=== PATIENT | male | born 1945 | race Caucasian/White ===

== ENCOUNTER 2018-08-05 14:06 | Inpatient (IN) | payer MEDICARE ==
--- NOTE | 2018-08-05 14:25 | EDM.PDOC ---
ED HPI GENERAL MEDICAL PROBLEM - General Chief Complaint: General Stated Complaint: VIA [facility] Time Seen by Provider: 08/05/18 14:14 Source of Information: Reports: Patient, RN Notes Reviewed History Limitations: Reports: No Limitations - History of Present Illness INITIAL COMMENTS - FREE TEXT/NARRATIVE: 73-year-old gentleman presents to the emergency department today with complaint of right sided back flank pain, he injured himself 2 days ago he slipped and fell on that side initially had no troubles then today he coughed really hard sudden onset of pain. He states it does hurt to take a deep breath no nausea vomiting no difficulties going to the bathroom Right Flank Pain Score (Numeric/FACES): 3 - Related Data Allergies Allergy/AdvReac Type Severity Reaction Status Date / Time No Known Allergies Allergy Verified 04/28/16 15:11 Home Meds: Home Meds Aspirin 1 tab PO DAILY 04/28/16 [History] Clopidogrel [Plavix] 75 mg PO DAILY 04/28/16 [History] Chlorthalidone 25 mg PO DAILY 08/05/18 [History] Famotidine [Pepcid] 20 mg PO DAILY 08/05/18 [History] Lisinopril 20 mg PO DAILY 08/05/18 [History] Rosuvastatin [Crestor] 20 mg PO DAILY 08/05/18 [History] amLODIPine [Norvasc] 10 mg PO DAILY 08/05/18 [History] Past Medical History Cardiovascular History: Reports: CAD, High Cholesterol, Stents - Infectious Disease History Infectious Disease History: Reports: Chicken Pox - Past Surgical History Cardiovascular Surgical History: Reports: Coronary Artery Stent GI Surgical History: Reports: Hernia, Abdominal, Hernia, Inguinal Social & Family History - Tobacco Use Smoking Status *Q: Former Smoker Used Tobacco, but Quit: Yes Month/Year Tobacco Last Used: many years ago - Caffeine Use Caffeine Use: Reports: Coffee - Recreational Drug Use Recreational Drug Use: No ED ROS GENERAL - Review of Systems Review Of Systems: See Below Musculoskeletal: Reports: Back Pain, Other (Mid axillary line right side) ED EXAM, GENERAL - Physical Exam Exam: See Below (Eos) Free Text/Narrative:: 73-year-old gentleman not in any distress, he is tender to palpation mid axillary line right side in the inferior portion of the chest wall, there is no spinal tenderness, lungs are clear to auscultation bilaterally cardiac arrest sensory regular rate and rhythm S1-S2 abdomen is soft and nontender Exam Limited By: No Limitations General Appearance: Alert, Mild Distress Course - Vital Signs Last Recorded V/S: Last Vital Signs Temp 96.8 F 08/05/18 15:23 Pulse 53 L 08/05/18 16:06 Resp 16 08/05/18 15:23 BP 157/101 H 08/05/18 16:06 Pulse Ox 97 08/05/18 15:23 - Orders/Labs/Meds Orders: Active Orders 24 hr Category Date Time Status TROPONIN I [CHEM] Stat Lab 08/05/18 18:24 Ordered UA W/MICROSCOPIC [URIN] Urgent Lab 08/05/18 15:11 Ordered Labs: Laboratory Tests 08/05/18 08/05/18 08/05/18 Range/Units 15:11 15:11 15:11 WBC 10.7 (4.5-11.0) K/uL RBC 5.21 (4.30-5.90) M/uL Hgb 14.1 (12.0-15.0) g/dL Hct 45.2 (40.0-54.0) % MCV 87 (80-98) fL MCH 27 (27-31) pg MCHC 31 L (32-36) % Plt Count 222 (150-400) K/uL Neut % (Auto) 78 H (36-66) % Lymph % (Auto) 13 L (24-44) % [place] % (Auto) 6 (2-6) % Eos % (Auto) 2 (2-4) % Baso % (Auto) 0 (0-1) % Sodium 142 (140-148) mmol/L Potassium 4.6 (3.6-5.2) mmol/L Chloride 107 (100-108) mmol/L Carbon Dioxide 28 (21-32) mmol/L Anion Gap 7.4 (5.0-14.0) mmol/L BUN 24 H (7-18) mg/dL Creatinine 1.8 H (0.8-1.3) mg/dL Est Cr Clr Drug Dosing 33.97 mL/min Estimated GFR (MDRD) 37 L (>60) Glucose 123 H (74-106) mg/dL Lactic Acid 1.6 (0.4-2.0) mmol/L Calcium 8.8 (8.5-10.1) mg/dL Total Bilirubin 0.3 (0.2-1.0) mg/dL AST 45 H (15-37) U/L ALT 64 (12-78) U/L Alkaline Phosphatase 66 (46-116) U/L Total Protein 6.9 (6.4-8.2) g/dL Albumin 3.6 (3.4-5.0) g/dL Globulin 3.3 (2.3-3.5) g/dL Albumin/Globulin Ratio 1.1 L (1.2-2.2) Meds: Medications Discontinued Medications Generic Name Dose Route Start Last Admin Trade Name Freq PRN Reason Stop Dose Admin Fentanyl 50 mcg 08/05/18 15:23 08/05/18 15:27 Sublimaze IVPUSH 08/05/18 15:24 50 mcg ONETIME ONE Administration Fentanyl 50 mcg 08/05/18 16:33 08/05/18 16:37 Sublimaze IVPUSH 08/05/18 16:34 50 mcg ONETIME ONE Administration Lorazepam 1 mg 08/05/18 18:26 Ativan IVPUSH 08/05/18 18:27 ONETIME ONE Ondansetron HCl 4 mg 08/05/18 17:47 08/05/18 17:53 Zofran IVPUSH 08/05/18 17:48 4 mg ONETIME ONE Administration Departure - Departure Time of Disposition: 18:34 Disposition: Refer to Observation Condition: Fair Clinical Impression: Right flank pain - Discharge Information Referrals: PCP,None [Primary Care Provider] - Forms: ED Department Discharge - My Orders Last 24 Hours: My Active Orders 08/05/18 15:11 UA W/MICROSCOPIC [URIN] Urgent 08/05/18 18:24 TROPONIN I [CHEM] Stat - Assessment/Plan Last 24 Hours: My Active Orders 08/05/18 15:11 UA W/MICROSCOPIC [URIN] Urgent 08/05/18 18:24 TROPONIN I [CHEM] Stat Plan: Assessment Acuity = acute Site and laterality = right flank pain Etiology = unknown etiology Manifestations = none Location of injury = Home Lab values = CBC, CMP unremarkable except for creatinine elevated 1.8 consistent chronic renal failure stage G IIIB, chest x-ray no acute process CT scan of the abdomen also no acute process Plan Continue to have pain felt he was unable to go home called discussed case with hospitalist hvac refrigeration technician at 1830 agreed to come and evaluate patient emergency department for admission This note was dictated using Psonar voice recognition software please call with any questions on syntax or grammar.
[2018-08-05] MEDS ORDERED: fentaNYL 100 MCG/2 ML SDV IVPUSH ONE ×2 (15:23→16:33)
--- NOTE | 2018-08-05 15:28 | CRLCR ---
INDICATION: fall pain in lower portion of chest FINDINGS: PA and lateral chest x-rays show a normal cardiac silhouette. The lungs show no focal pulmonary opacities. Sharp pleural margins. No pneumothorax. IMPRESSION: No evidence of acute pulmonary abnormalities. Dictated by Qasim Villanueva MD @ 08/05/2018 3:26:09 PM Dictated by: Qasim Villanueva MD @ 08/05/2018 15:26:16 (Electronically Signed)
--- NOTE | 2018-08-05 17:42 | CRLCT ---
INDICATION: Right flank pain. TECHNIQUE: Nonenhanced volumetric CT scan of the abdomen, pelvis with multiplanar reconstructions. COMPARISON: None. FINDINGS: Mild interstitial change at the right lower lobe on. No definitive nodule/mass. No alveolar opacity. No pleural/pericardial fluid accumulation. Coronary artery stents/calcification visible. Liver and spleen and pancreas and adrenal glands have a normal noncontrast CT appearance. Left kidney is not seen. Right kidney demonstrates a large peripelvic cyst, about 4.8 cm transverse and 3.3 cm AP and 3.6 cm craniocaudad. No intrarenal calculi. The right ureter appears normal in course and caliber. Large urinary bladder diverticulum posterior laterally on the right and 7.1 cm craniocaudad and 6.1 cm AP and about 5.1 cm transverse. No urinary bladder calculi identified. Gallbladder demonstrates no calcified stones. There is no biliary enlargement. Nonobstructing, nonspecific bowel pattern. No evidence of appendicitis. No evidence of ascites, free air, nor inflammatory change. Calcified atherosclerotic plaque within the abdominal aorta and iliac arteries. Mildly enlarged prostate containing calcifications. No acute/aggressive osseous lesions. 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 Anterior abdominal wall is intact. IMPRESSION: 1. Apparent congenital absence of left kidney, surgical correlation recommended as to any evidence of left nephrectomy. 2. Large right peripelvic renal cyst does not appear to account for obstruction, right ureter normal in course and caliber. There is a large diverticulum associated with urinary bladder posterolaterally on the right. It is conceivable that this could intermittently interfere with right ureteral function. Currently, no definitive evidence of obstruction. Cystoscopy might be of benefit for further evaluation of urinary bladder and right ureter and right upper collecting system. 3. Mentioned here, but not above, are small nonspecific areas of fluid near the inguinal canal regions with junctions with the abdominal wall, etiology/significance not known. Please note that all CT scans at this facility use dose modulation, iterative reconstruction, and/or weight-based dosing when appropriate to reduce radiation dose to as low as reasonably achievable. Dictated by Darwin Cast MD @ Aug 05 2018 5:15PM Signed by Dr. Darwni Cast @ Aug 05 2018 5:40PM
[2018-08-05] MEDS ORDERED: Ondansetron 4 MG/2 ML SDV IVPUSH ONE (17:47)
[2018-08-05] MEDS ORDERED: LORazepam 2 MG/ML SDV IVPUSH ONE (18:26)
[2018-08-05] MEDS: Lactated Ringers 1,000 ML IV SCH ×2 (18:55→22:41)
[2018-08-05] MEDS ORDERED: HYDROmorphone 1 MG/ML Syringe IVPUSH ONE (19:30)
--- NOTE | 2018-08-05 19:53 | PCM.HP ---
H&P History of Present Illness - General Date of Service: 08/05/18 Admit Problem/Dx: Admission Diagnosis/Problem Admission Diagnosis/Problem Flank pain Source of Information: Patient History Limitations: Reports: No Limitations - History of Present Illness Initial Comments - Free Text/Narative: Mr. Grissom arrived via EMS with severe right sided flank pain after sneezing at home. He reports fell two days ago onto his right side, the area was sore but after sneezing develops unbearable pain. Labs, Abdomen-pelvis, chest xray do not have definite source for the pain. A large right renal cyst was noted and diverticula in bladder, referral was made to Nephrology in outpatient. He does not feel he can go home due to the severe pain. Plan to admit to hospital for pain control. Onset of Symptoms: Reports: Sudden Duration of Symptoms: Reports: Hour(s):, Day(s): (fell 2 days ago) Location: Reports: Abdomen (right flank) Quality: Reports: Sharp, Stabbing Severity: Severe Improves with: Reports: Immobilization Worsens with: Reports: Movement Context: Reports: Other (fall at home x two days ago) Associated Symptoms: Reports: No Other Symptoms Right Flank Pain Score (Numeric/FACES): 3 - Related Data Allergies/Adverse Reactions: Allergies Allergy/AdvReac Type Severity Reaction Status Date / Time No Known Allergies Allergy Verified 04/28/16 15:11 Home Medications: Home Meds Aspirin 1 tab PO DAILY 04/28/16 [History] Clopidogrel [Plavix] 75 mg PO DAILY 04/28/16 [History] Chlorthalidone 25 mg PO DAILY 08/05/18 [History] Famotidine [Pepcid] 20 mg PO DAILY 08/05/18 [History] Lisinopril 20 mg PO DAILY 08/05/18 [History] Rosuvastatin [Crestor] 20 mg PO DAILY 08/05/18 [History] amLODIPine [Norvasc] 10 mg PO DAILY 08/05/18 [History] Past Medical History - Past Health History Medical/Surgical History: Denies Medical/Surgical History Cardiovascular History: Reports: CAD, High Cholesterol, Stents - Infectious Disease History Infectious Disease History: Reports: Chicken Pox - Past Surgical History Cardiovascular Surgical History: Reports: Coronary Artery Stent GI Surgical History: Reports: Hernia, Abdominal, Hernia, Inguinal Social & Family History - Tobacco Use Smoking Status *Q: Former Smoker Used Tobacco, but Quit: Yes Month/Year Tobacco Last Used: many years ago - Caffeine Use Caffeine Use: Reports: Coffee - Recreational Drug Use Recreational Drug Use: No - Living Situation & Occupation Living situation: Reports: with Significant Other Occupation: Retired (lives with Girlfriend on [address]. no children in his life time.) H&P Review of Systems - Review of Systems: Review Of Systems: See Below General: Reports: Other (right flank pain) HEENT: Reports: No Symptoms Pulmonary: Reports: No Symptoms Cardiovascular: Reports: No Symptoms Gastrointestinal: Reports: Abdominal Pain (right flank) Genitourinary: Reports: No Symptoms Musculoskeletal: Reports: Back Pain (right mid back pain) Skin: Reports: No Symptoms Psychiatric: Reports: No Symptoms Neurological: Reports: No Symptoms Hematologic/Lymphatic: Reports: No Symptoms Immunologic: Reports: No Symptoms Exam - Exam Exam: See Below - Vital Signs Vital Signs: Last Vital Signs Temp 36.0 C 08/05/18 15:23 Pulse 53 L 08/05/18 16:06 Resp 16 08/05/18 15:23 BP 157/101 H 08/05/18 16:06 Pulse Ox 97 08/05/18 15:23 Weight: 77.111 kg - Exam General: Alert, Oriented, Cooperative, Severe Distress (if area of back/flank is touched he develops severe pain. guarding of area. muscle tense) HEENT: PERRLA, Hearing Intact, Mucosa Moist & [place], Nares Patent, Normal Nasal Septum, Posterior Pharynx Clear, Conjunctiva Clear, EOMI, EACs Clear, TMs Clear Neck: Supple, Trachea Midline, 2 Lungs: Clear to Auscultation, Normal Respiratory Effort Cardiovascular: Regular Rate, Regular Rhythm GI/Abdominal Exam: Normal Bowel Sounds, Soft, Non-Tender, No Abnormal Bruit (Male) Exam: Deferred Rectal (Males) Exam: Deferred Back Exam: CVA Tenderness (R), Muscle Spasm (right mid back radiates to right abdomen) Extremities: Normal Inspection, Normal Range of Motion, Non-Tender, No Pedal Edema, Normal Capillary Refill Skin: Warm, Dry, Intact Neurological: Reflexes Equal Bilateral, Strength Equal Bilateral Neuro Extensive - Mental Status: Alert, Oriented x3, Normal Mood/Affect Psychiatric: Alert, Normal Affect, Normal Mood - Patient Data Lab Results Last 24 hrs: Laboratory Results - last 24 hr 08/05/18 08/05/18 08/05/18 Range/Units 15:11 15:11 15:11 WBC 10.7 (4.5-11.0) K/uL RBC 5.21 (4.30-5.90) M/uL Hgb 14.1 (12.0-15.0) g/dL Hct 45.2 (40.0-54.0) % MCV 87 (80-98) fL MCH 27 (27-31) pg MCHC 31 L (32-36) % Plt Count 222 (150-400) K/uL Neut % (Auto) 78 H (36-66) % Lymph % (Auto) 13 L (24-44) % [place] % (Auto) 6 (2-6) % Eos % (Auto) 2 (2-4) % Baso % (Auto) 0 (0-1) % Sodium 142 (140-148) mmol/L Potassium 4.6 (3.6-5.2) mmol/L Chloride 107 (100-108) mmol/L Carbon Dioxide 28 (21-32) mmol/L Anion Gap 7.4 (5.0-14.0) mmol/L BUN 24 H (7-18) mg/dL Creatinine 1.8 H (0.8-1.3) mg/dL Est Cr Clr Drug Dosing 33.97 mL/min Estimated GFR (MDRD) 37 L (>60) Glucose 123 H (74-106) mg/dL Lactic Acid 1.6 (0.4-2.0) mmol/L Calcium 8.8 (8.5-10.1) mg/dL Total Bilirubin 0.3 (0.2-1.0) mg/dL AST 45 H (15-37) U/L ALT 64 (12-78) U/L Alkaline Phosphatase 66 (46-116) U/L Troponin I (0.000-0.056) ng/mL Total Protein 6.9 (6.4-8.2) g/dL Albumin 3.6 (3.4-5.0) g/dL Globulin 3.3 (2.3-3.5) g/dL Albumin/Globulin Ratio 1.1 L (1.2-2.2) 08/05/18 Range/Units 18:32 WBC (4.5-11.0) K/uL RBC (4.30-5.90) M/uL Hgb (12.0-15.0) g/dL Hct (40.0-54.0) % MCV (80-98) fL MCH (27-31) pg MCHC (32-36) % Plt Count (150-400) K/uL Neut % (Auto) (36-66) % Lymph % (Auto) (24-44) % [place] % (Auto) (2-6) % Eos % (Auto) (2-4) % Baso % (Auto) (0-1) % Sodium (140-148) mmol/L Potassium (3.6-5.2) mmol/L Chloride (100-108) mmol/L Carbon Dioxide (21-32) mmol/L Anion Gap (5.0-14.0) mmol/L BUN (7-18) mg/dL Creatinine (0.8-1.3) mg/dL Est Cr Clr Drug Dosing mL/min Estimated GFR (MDRD) (>60) Glucose (74-106) mg/dL Lactic Acid (0.4-2.0) mmol/L Calcium (8.5-10.1) mg/dL Total Bilirubin (0.2-1.0) mg/dL AST (15-37) U/L ALT (12-78) U/L Alkaline Phosphatase (46-116) U/L Troponin I 0.026 (0.000-0.056) ng/mL Total Protein (6.4-8.2) g/dL Albumin (3.4-5.0) g/dL Globulin (2.3-3.5) g/dL Albumin/Globulin Ratio (1.2-2.2) Result Diagrams: 08/05/18 15:11 08/05/18 15:11 - Problem List (1) Right flank pain SNOMED Code(s): 502160889 ICD Code: R10.9 - UNSPECIFIED ABDOMINAL PAIN Status: Acute Priority: High Current Visit: Yes (2) Coronary artery disease SNOMED Code(s): 14036932 ICD Code: I25.10 - ATHSCL HEART DISEASE OF [place] CORONARY ARTERY W/O ANG PCTRS Status: Acute Priority: Low Current Visit: Yes Problem List Initiated/Reviewed/Updated: Yes Orders Last 24hrs: Active Orders 24 hr Category Date Time Status Patient Status Manage Transfer [TRANSFER] Routine ADT 08/05/18 19:32 Active UA W/MICROSCOPIC [URIN] Urgent Lab 08/05/18 15:11 Ordered Lactated Ringers [Ringers, Lactated] 1,000 ml Med 08/05/18 18:45 Active IV ASDIRECTED Resuscitation Status Routine Resus Stat 08/05/18 19:34 Ordered Medication Orders Lactated Ringer's (Ringers, Lactated) 1,000 mls @ 125 mls/hr IV ASDIRECTED GALEN Last Admin: 08/05/18 18:55 Dose: 125 mls/hr Assessment/Plan Comment:: ASSESSMENT / PLAN -pt arrived with severe right sided flank pain after sneezing at home. He reports fell two days ago onto his right side, the area was sore but after sneezing develops unbearable pain. Labs, Abdomen-pelvis, chest xray do not have definite source for the pain. A large right renal cyst was noted and diverticula in bladder, referral was made to Nephrology in outpatient. He does not feel he can go home due to the severe pain. Plan to admit to hospital for pain control. labs done is ER , CBC, CMP, lactic acid; normal. Urine with micro; pending Imaging; CT abdomen - pelvis: single kidney (congenital) with cyst, bladder diverticula Chest xray - negative past medical history -single kidney right - congenital, CAD, skin cancer right wrist, doesn't smoke or drink. Plan -Admit Observation [facility] for further monitoring Right flank pain -IV fluids LR at 125ml/hr -pain medications ordered. -IV Ativan 1 mg every 4 hours as needed for muscle spasm -Flexeril 10 mg at HS -urine pending -Advise to notify nurses of any fever, chills, worsen pain or other symptoms -And a.m. labs: CBC, BMP CAD -ordered home medications Maintenance issues -Orders home meds:ordered -Nutrition: Regular diet -Turcios catheter not indicated at this time -DVT:ambulate -GI Prophalaxis; Protonix 40mg daily -referral Spiritual care. CODE STATUS: Full Admission status: Admit to Observation -I expect this patient to stay less than 24 hours, not to exceed 96 hours for evaluation and management of this problem. Disposition: home Primary care provider: Hospitalist: Dr. Olson
[2018-08-05] MEDS ORDERED: Ondansetron 4 MG Tab.DIS PO PRN (20:30)
[2018-08-05] MEDS ORDERED: LORazepam 2 MG/ML SDV IV PRN (20:30)
[2018-08-05] MEDS: Cyclobenzaprine 10 MG Tab PO SCH (21:20)
[2018-08-05] MEDS: oxyCODONE 5 MG Tab PO PRN (21:20)
[2018-08-05] MEDS: HYDROmorphone 1 MG/ML Syringe IVPUSH PRN (23:31)
[2018-08-06] MEDS: HYDROmorphone 1 MG/ML Syringe IVPUSH PRN ×3 (01:40→12:35)
[2018-08-06] MEDS ORDERED: Lidocaine 5% 700 MG Patch TOP ONE (04:00)
[2018-08-06] MEDS ORDERED: Naloxone 0.4 MG/ML SDV ONE (04:00)
[2018-08-06] MEDS ORDERED: cefTRIAXone 1 GM in Sodium Chloride 0.9% 50 ML IV ONE (04:27)
[2018-08-06] MEDS ORDERED: Sodium Chloride 0.9% 1,000 ML IV SCH (04:30)
[2018-08-06] MEDS ORDERED: cefTRIAXone 1 GM Vial ONE (04:50)
[2018-08-06] MEDS ORDERED: Sodium Chloride 0.9% 50 ML ONE (04:50)
[2018-08-06] MEDS ORDERED: Lidocaine 5% 700 MG Patch ONE (04:54)
[2018-08-06] MEDS ORDERED: Ondansetron 4 MG/2 ML SDV IVPUSH PRN (04:57)
--- NOTE | 2018-08-06 04:57 | PCM.SN ---
- Free Text/Narrative Note: date: 08/06/2018 time 2:07 call from [facility] s: continues to have right sided abdominal pain, restless, hasn't voided a: urinary retention, right flank pain P: butler cath placed, 1000ml of urine. Mr. Grissom appear more comfortable.
[2018-08-06] MEDS: Rosuvastatin 10 MG Tab PO SCH (10:13)
[2018-08-06] MEDS: Clopidogrel 75 MG Tab PO SCH (10:13)
[2018-08-06] MEDS: amLODIPine 10 MG Tab PO SCH (10:13)
[2018-08-06] MEDS: Lisinopril 20 MG Tab PO SCH (10:13)
[2018-08-06] MEDS: Famotidine 20 MG Tab PO SCH (10:13)
[2018-08-06] MEDS: Chlorthalidone 25 MG Tab PO SCH (10:13)
[2018-08-06] MEDS: Aspirin 81 MG Tab.Chew PO SCH (10:13)
[2018-08-06] MEDS ORDERED: LORazepam 2 MG/ML SDV IVPUSH PRN (10:58)
--- NOTE | 2018-08-06 10:58 | PCM.PN ---
- General Info Date of Service: 08/06/18 Subjective Update: Mr. Grissom is a 73-year-old gentleman who was admitted through the emergency department last night with severe right flank pain. He had fallen 2 days prior to admission and noted soreness and pain in the area. Yesterday he sneezes setting off significant muscle spasm and uncontrolled pain. He was seen and evaluated in the emergency department, CT scan of the abdomen was unremarkable and chest x-ray showed no obvious abnormalities. He was admitted for pain control, early this morning had severe recurrent pain. He was reevaluated, labs showed elevated white blood cell count and he was started empirically on IV Rocephin. Lactic acid level was also found to be mildly to moderately elevated. Lactic acid level is now back to normal range he has remained afebrile and hemodynamically stable. He did have an episode of emesis this morning that was found to be heme positive. Functional Status: Reports: Ambulating, Urinating. Denies: Tolerating Diet - Review of Systems General: Reports: Weakness. Denies: Fever, Chills Pulmonary: Reports: No Symptoms Cardiovascular: Reports: No Symptoms Gastrointestinal: Reports: Nausea, Vomiting, Other (Hematemesis). Denies: Abdominal Pain, Diarrhea, Difficulty Swallowing Musculoskeletal: Reports: Back Pain (Right flank) - Patient Data Vitals - Most Recent: Last Vital Signs Temp 97.2 F 08/06/18 07:26 Pulse 63 08/06/18 07:05 Resp 11 L 08/06/18 07:26 BP 135/63 08/06/18 07:05 Pulse Ox 95 08/06/18 07:25 Weight - Most Recent: 173 lb I&O - Last 24 Hours: Intake & Output 08/05/18 08/06/18 08/06/18 22:59 06:59 14:59 Intake Total 1724 300 Output Total 930 400 Balance 794 -100 Lab Results Last 24 Hours: Laboratory Results - last 24 hr 08/05/18 08/05/18 08/05/18 Range/Units 15:11 15:11 15:11 WBC 10.7 (4.5-11.0) K/uL RBC 5.21 (4.30-5.90) M/uL Hgb 14.1 (12.0-15.0) g/dL Hct 45.2 (40.0-54.0) % MCV 87 (80-98) fL MCH 27 (27-31) pg MCHC 31 L (32-36) % Plt Count 222 (150-400) K/uL Neut % (Auto) 78 H (36-66) % Lymph % (Auto) 13 L (24-44) % [place] % (Auto) 6 (2-6) % Eos % (Auto) 2 (2-4) % Baso % (Auto) 0 (0-1) % Sodium 142 (140-148) mmol/L Potassium 4.6 (3.6-5.2) mmol/L Chloride 107 (100-108) mmol/L Carbon Dioxide 28 (21-32) mmol/L Anion Gap 7.4 (5.0-14.0) mmol/L BUN 24 H (7-18) mg/dL Creatinine 1.8 H (0.8-1.3) mg/dL Est Cr Clr Drug Dosing 33.97 mL/min Estimated GFR (MDRD) 37 L (>60) Glucose 123 H (74-106) mg/dL Lactic Acid 1.6 (0.4-2.0) mmol/L Calcium 8.8 (8.5-10.1) mg/dL Total Bilirubin 0.3 (0.2-1.0) mg/dL AST 45 H (15-37) U/L ALT 64 (12-78) U/L Alkaline Phosphatase 66 (46-116) U/L Troponin I (0.000-0.056) ng/mL C-Reactive Protein (0.0-0.3) mg/dL Total Protein 6.9 (6.4-8.2) g/dL Albumin 3.6 (3.4-5.0) g/dL Globulin 3.3 (2.3-3.5) g/dL Albumin/Globulin Ratio 1.1 L (1.2-2.2) Urine Color Urine Appearance Urine pH (4.5-8.0) Ur Specific Calvin (1.008-1.030) Urine Protein (NEGATIVE) mg/dL Urine Glucose (UA) (NEGATIVE) mg/dL Urine Ketones (NEGATIVE) mg/dL Urine Occult Blood (NEGATIVE) Urine Nitrite (NEGAITVE) Urine Bilirubin (NEGATIVE) Urine Urobilinogen (NORMAL) mg/dL Ur Leukocyte Esterase (NEGATIVE) Urine RBC (0-5) Urine WBC (0-5) Ur Epithelial Cells Amorphous Sediment Urine Bacteria Urine Mucus Gastric Occult Blood (NEGATIVE) 08/05/18 08/06/18 08/06/18 Range/Units 18:32 02:30 04:16 WBC 21.7 H (4.5-11.0) K/uL RBC 4.80 (4.30-5.90) M/uL Hgb 13.4 (12.0-15.0) g/dL Hct 42.0 (40.0-54.0) % MCV 88 (80-98) fL MCH 28 (27-31) pg MCHC 32 (32-36) % Plt Count 255 (150-400) K/uL Neut % (Auto) 80 H (36-66) % Lymph % (Auto) 10 L (24-44) % [place] % (Auto) 9 H (2-6) % Eos % (Auto) 1 L (2-4) % Baso % (Auto) 0 (0-1) % Sodium (140-148) mmol/L Potassium (3.6-5.2) mmol/L Chloride (100-108) mmol/L Carbon Dioxide (21-32) mmol/L Anion Gap (5.0-14.0) mmol/L BUN (7-18) mg/dL Creatinine (0.8-1.3) mg/dL Est Cr Clr Drug Dosing mL/min Estimated GFR (MDRD) (>60) Glucose (74-106) mg/dL Lactic Acid (0.4-2.0) mmol/L Calcium (8.5-10.1) mg/dL Total Bilirubin (0.2-1.0) mg/dL AST (15-37) U/L ALT (12-78) U/L Alkaline Phosphatase (46-116) U/L Troponin I 0.026 (0.000-0.056) ng/mL C-Reactive Protein (0.0-0.3) mg/dL Total Protein (6.4-8.2) g/dL Albumin (3.4-5.0) g/dL Globulin (2.3-3.5) g/dL Albumin/Globulin Ratio (1.2-2.2) Urine Color Yellow Urine Appearance Clear Urine pH 5.0 (4.5-8.0) Ur Specific [place] 1.020 (1.008-1.030) Urine Protein 500 H (NEGATIVE) mg/dL Urine Glucose (UA) Normal (NEGATIVE) mg/dL Urine Ketones Negative (NEGATIVE) mg/dL Urine Occult Blood Negative (NEGATIVE) Urine Nitrite Negative (NEGAITVE) Urine Bilirubin Negative (NEGATIVE) Urine Urobilinogen Normal (NORMAL) mg/dL Ur Leukocyte Esterase Negative (NEGATIVE) Urine RBC 0-5 (0-5) Urine WBC 5-10 H (0-5) Ur Epithelial Cells Few Amorphous Sediment Few Urine Bacteria Few Urine Mucus Not seen Gastric Occult Blood (NEGATIVE) 08/06/18 08/06/18 08/06/18 Range/Units 04:16 04:23 04:23 WBC (4.5-11.0) K/uL RBC (4.30-5.90) M/uL Hgb (12.0-15.0) g/dL Hct (40.0-54.0) % MCV (80-98) fL MCH (27-31) pg MCHC (32-36) % Plt Count (150-400) K/uL Neut % (Auto) (36-66) % Lymph % (Auto) (24-44) % [place] % (Auto) (2-6) % Eos % (Auto) (2-4) % Baso % (Auto) (0-1) % Sodium 141 (140-148) mmol/L Potassium 4.1 (3.6-5.2) mmol/L Chloride 105 (100-108) mmol/L Carbon Dioxide 25 (21-32) mmol/L Anion Gap 11.4 (5.0-14.0) mmol/L BUN 29 H (7-18) mg/dL Creatinine 2.1 H (0.8-1.3) mg/dL Est Cr Clr Drug Dosing 27.02 mL/min Estimated GFR (MDRD) 31 L (>60) Glucose 160 H (74-106) mg/dL Lactic Acid 3.9 H (0.4-2.0) mmol/L Calcium 8.6 (8.5-10.1) mg/dL Total Bilirubin (0.2-1.0) mg/dL AST (15-37) U/L ALT (12-78) U/L Alkaline Phosphatase (46-116) U/L Troponin I (0.000-0.056) ng/mL C-Reactive Protein 0.49 H (0.0-0.3) mg/dL Total Protein (6.4-8.2) g/dL Albumin (3.4-5.0) g/dL Globulin (2.3-3.5) g/dL Albumin/Globulin Ratio (1.2-2.2) Urine Color Urine Appearance Urine pH (4.5-8.0) Ur Specific Calvin (1.008-1.030) Urine Protein (NEGATIVE) mg/dL Urine Glucose (UA) (NEGATIVE) mg/dL Urine Ketones (NEGATIVE) mg/dL Urine Occult Blood (NEGATIVE) Urine Nitrite (NEGAITVE) Urine Bilirubin (NEGATIVE) Urine Urobilinogen (NORMAL) mg/dL Ur Leukocyte Esterase (NEGATIVE) Urine RBC (0-5) Urine WBC (0-5) Ur Epithelial Cells Amorphous Sediment Urine Bacteria Urine Mucus Gastric Occult Blood (NEGATIVE) 08/06/18 08/06/18 08/06/18 Range/Units 04:58 08:57 10:10 WBC (4.5-11.0) K/uL RBC (4.30-5.90) M/uL Hgb (12.0-15.0) g/dL Hct (40.0-54.0) % MCV (80-98) fL MCH (27-31) pg MCHC (32-36) % Plt Count (150-400) K/uL Neut % (Auto) (36-66) % Lymph % (Auto) (24-44) % [place] % (Auto) (2-6) % Eos % (Auto) (2-4) % Baso % (Auto) (0-1) % Sodium (140-148) mmol/L Potassium (3.6-5.2) mmol/L Chloride (100-108) mmol/L Carbon Dioxide (21-32) mmol/L Anion Gap (5.0-14.0) mmol/L BUN (7-18) mg/dL Creatinine (0.8-1.3) mg/dL Est Cr Clr Drug Dosing mL/min Estimated GFR (MDRD) (>60) Glucose (74-106) mg/dL Lactic Acid 1.8 (0.4-2.0) mmol/L Calcium (8.5-10.1) mg/dL Total Bilirubin (0.2-1.0) mg/dL AST (15-37) U/L ALT (12-78) U/L Alkaline Phosphatase (46-116) U/L Troponin I 0.022 (0.000-0.056) ng/mL C-Reactive Protein (0.0-0.3) mg/dL Total Protein (6.4-8.2) g/dL Albumin (3.4-5.0) g/dL Globulin (2.3-3.5) g/dL Albumin/Globulin Ratio (1.2-2.2) Urine Color Urine Appearance Urine pH (4.5-8.0) Ur Specific Calvin (1.008-1.030) Urine Protein (NEGATIVE) mg/dL Urine Glucose (UA) (NEGATIVE) mg/dL Urine Ketones (NEGATIVE) mg/dL Urine Occult Blood (NEGATIVE) Urine Nitrite (NEGAITVE) Urine Bilirubin (NEGATIVE) Urine Urobilinogen (NORMAL) mg/dL Ur Leukocyte Esterase (NEGATIVE) Urine RBC (0-5) Urine WBC (0-5) Ur Epithelial Cells Amorphous Sediment Urine Bacteria Urine Mucus Gastric Occult Blood Positive H (NEGATIVE) Med Orders - Current: Current Medications Amlodipine Besylate (Norvasc) 10 mg PO DAILY [facility] Last Admin: 08/06/18 10:13 Dose: Not Given Aspirin (Aspirin) 81 mg PO DAILY [facility] Last Admin: 08/06/18 10:13 Dose: Not Given Chlorthalidone (Chlorthalidone) 25 mg PO DAILY [facility] Last Admin: 08/06/18 10:13 Dose: Not Given Clopidogrel Bisulfate (Plavix) 75 mg PO DAILY [facility] Last Admin: 08/06/18 10:13 Dose: Not Given Cyclobenzaprine HCl (Flexeril) 10 mg PO BEDTIME [facility] Last Admin: 08/05/18 21:20 Dose: 10 mg Docusate Sodium (Colace) 100 mg PO BID PRN PRN Reason: Constipation Famotidine (Pepcid) 20 mg PO DAILY [facility] Last Admin: 08/06/18 10:13 Dose: Not Given Hydromorphone HCl (Dilaudid) 1 mg IVPUSH Q2H PRN PRN Reason: Pain (severe 7-10) Last Admin: 08/06/18 10:03 Dose: 1 mg Sodium Chloride (Normal Saline) 1,000 mls @ 75 mls/hr IV ASDIRECTED [facility] Lisinopril (Prinivil) 20 mg PO DAILY [facility] Last Admin: 08/06/18 10:13 Dose: Not Given Lorazepam (Ativan) 1 mg IV Q4H PRN PRN Reason: Muscle Spasm Last Admin: 08/05/18 22:37 Dose: 1 mg Miscellaneous Information (Remove Patch) 1 ea TRDERM ONETIME [facility] Stop: 08/06/18 18:00 Ondansetron HCl (Zofran Odt) 4 mg PO Q6H PRN PRN Reason: Nausea able to take PO Last Admin: 08/06/18 04:06 Dose: 4 mg Ondansetron HCl (Zofran) 4 mg IVPUSH Q4H PRN PRN Reason: Nausea/Vomiting Last Admin: 08/06/18 08:33 Dose: 4 mg Oxycodone HCl (Oxycodone) 10 mg PO Q4H PRN PRN Reason: Pain (moderate 4-6) Last Admin: 08/05/18 21:20 Dose: 10 mg Pantoprazole Sodium (Protonix Iv) 40 mg IVPUSH Q12H [facility] Rosuvastatin Calcium (Crestor) 20 mg PO DAILY [facility] Last Admin: 08/06/18 10:13 Dose: Not Given Discontinued Medications Ceftriaxone Sodium (Rocephin) Confirm Administered Dose 1 gm .ROUTE .STK-MED ONE Stop: 08/06/18 04:51 Last Admin: 08/06/18 05:19 Dose: Not Given Fentanyl (Sublimaze) 50 mcg IVPUSH ONETIME ONE Stop: 08/05/18 15:24 Last Admin: 08/05/18 15:27 Dose: 50 mcg Fentanyl (Sublimaze) 50 mcg IVPUSH ONETIME ONE Stop: 08/05/18 16:34 Last Admin: 08/05/18 16:37 Dose: 50 mcg Hydromorphone HCl (Dilaudid) 1 mg IVPUSH ONETIME ONE Stop: 08/05/18 19:31 Last Admin: 08/05/18 20:15 Dose: 1 mg Lactated Ringer's (Ringers, Lactated) 1,000 mls @ 125 mls/hr IV ASDIRECTED [facility] Last Admin: 08/05/18 22:41 Dose: 125 mls/hr Ceftriaxone Sodium 1 gm/ (Sodium Chloride) 50 mls @ 100 mls/hr IV ONETIME ONE Stop: 08/06/18 04:56 Last Admin: 08/06/18 05:19 Dose: 100 mls/hr Sodium Chloride (Normal Saline) 1,000 mls @ 125 mls/hr IV ASDIRECTED [facility] Last Admin: 08/06/18 05:19 Dose: 125 mls/hr Sodium Chloride (Normal Saline) Confirm Administered Dose 50 mls @ as directed .ROUTE .STK-MED ONE Stop: 08/06/18 04:51 Last Admin: 08/06/18 05:19 Dose: Not Given Lidocaine (Lidoderm 5%) 700 mg TOP ONETIME ONE Stop: 08/06/18 04:01 Last Admin: 08/06/18 04:57 Dose: 700 mg Lidocaine (Lidoderm 5%) Confirm Administered Dose 700 mg .ROUTE .STK-MED ONE Stop: 08/06/18 04:55 Last Admin: 08/06/18 05:20 Dose: Not Given Lorazepam (Ativan) 1 mg IVPUSH ONETIME ONE Stop: 08/05/18 18:27 Last Admin: 08/05/18 18:35 Dose: 1 mg Naloxone HCl (Narcan) Confirm Administered Dose 0.4 mg .ROUTE .STK-MED ONE Stop: 08/06/18 04:01 Last Admin: 08/06/18 05:19 Dose: Not Given Ondansetron HCl (Zofran) 4 mg IVPUSH ONETIME ONE Stop: 08/05/18 17:48 Last Admin: 08/05/18 17:53 Dose: 4 mg - Exam Quality Assessment: DVT Prophylaxis General: Alert, Oriented, Cooperative, Moderate Distress Lungs: Clear to Auscultation, Normal Respiratory Effort Cardiovascular: Regular Rate, Regular Rhythm, No Murmurs GI/Abdominal Exam: Soft, Non-Tender, No Organomegaly, No Distention Back Exam: Other (Marked tenderness to palpation right flank) Extremities: Non-Tender, No Pedal Edema - Problem List Review Problem List Initiated/Reviewed/Updated: Yes - My Orders Last 24 Hours: My Active Orders 08/06/18 10:44 Consult to Physician [CONS] Routine 08/06/18 10:45 Notify Provider Consults [RC] ASDIRECTED Pantoprazole [ProTONIX IV] 40 mg IVPUSH Q12H 08/06/18 10:47 Convert IV to Saline Lock [OM.PC] Routine 08/06/18 16:00 Remove Patch 1 ea TRDERM ONETIME 08/06/18 17:00 HGB [HEMOGLOBIN] [HEME] Stat 08/07/18 00:01 Sodium Chloride 0.9% @ 75 MLS/HR(1000ml) Sodium Chloride 0.9% [Normal Saline] 1 ,000 ml IV ASDIRECTED 08/07/18 05:00 BASIC METABOLIC PANEL,BMP [CHEM] Timed CBC WITH AUTO DIFF [HEME] Timed MAGNESIUM [CHEM] Timed 08/07/18 Breakfast NPO After Midnight [Nothing per Oral After Midnight Diet] [DIET] - Plan Plan:: ASSESSMENT / PLAN Right flank pain-likely secondary to soft tissue injury with associated muscle strain and muscle spasm. Severe pain during the night associated with mild elevation in lactic acid as well as increase in white blood cell count. Lactic acid level has now normalized, no evidence of underlying infection. CT scan of the abdomen as well as chest x-ray obtained in the emergency department were found to be unremarkable. -Discontinue ceftriaxone -Repeat white blood cell count in a.m. -Saline lock IV -Continuous pulse oximetry -Pain medication as needed -IV Ativan 0.5 mg every 4 hours as needed for muscle spasm -Flexeril 10 mg at HS Hematemesis -Follow-up hemoglobin later this afternoon and again in a.m. -Protonix 40 mg IV every 12 hours -Nothing by mouth after midnight -Consult Dr. Chin for EGD in a.m. CAD -ordered home medications Maintenance issues -Orders home meds:ordered -Nutrition: Regular diet -Turcios catheter not indicated at this time -DVT:ambulate -GI Prophalaxis; Protonix 40mg daily -referral Spiritual care. CODE STATUS: Full Admission status: Admit to Observation -I expect this patient to stay less than 24 hours, not to exceed 96 hours for evaluation and management of this problem. Disposition: home Primary care provider: Hospitalist: Dr. Gold
[2018-08-06] MEDS: Pantoprazole 40 MG Vial IVPUSH SCH ×2 (12:43→22:56)
[2018-08-06] MEDS: Cyclobenzaprine 10 MG Tab PO SCH (21:00)
[2018-08-07] MEDS ORDERED: Sodium Chloride 0.9% 1,000 ML IV SCH (00:01)
[2018-08-07] MEDS: Sodium Chloride 0.9% 1,000 ML IV SCH ×2 (01:12→13:24)
[2018-08-07] MEDS: oxyCODONE 5 MG Tab PO PRN (04:18)
--- NOTE | 2018-08-07 10:26 | PCM.PN ---
- General Info Date of Service: 08/07/18 Subjective Update: Mr. Grissom is been stable since yesterday with improved pain control. He had a second emesis yesterday afternoon that again appeared to be somewhat bloody. Hemoglobin has dropped only slightly from yesterday. EGD pending this morning with Dr. Chin. Functional Status: Reports: Pain Controlled, Tolerating Diet, Ambulating - Review of Systems General: Reports: Weakness. Denies: Fever, Chills Pulmonary: Reports: No Symptoms Cardiovascular: Reports: No Symptoms Gastrointestinal: Reports: No Symptoms Musculoskeletal: Reports: Other (muscular right flank pain) - Patient Data Vitals - Most Recent: Last Vital Signs Temp 96.4 F 08/07/18 07:00 Pulse 56 L 08/07/18 07:00 Resp 18 08/07/18 07:00 BP 175/65 H 08/07/18 07:00 Pulse Ox 95 08/07/18 07:37 Weight - Most Recent: 172 lb 15.983 oz I&O - Last 24 Hours: Intake & Output 08/06/18 08/07/18 08/07/18 22:59 06:59 14:59 Intake Total 5 Output Total 450 1150 Balance -445 -1150 Lab Results Last 24 Hours: Laboratory Results - last 24 hr 08/06/18 08/06/18 08/07/18 Range/Units 10:10 17:09 05:47 WBC 10.0 (4.5-11.0) K/uL RBC 4.50 (4.30-5.90) M/uL Hgb 12.9 12.6 (12.0-15.0) g/dL Hct 40.2 (40.0-54.0) % MCV 89 (80-98) fL MCH 28 (27-31) pg MCHC 31 L (32-36) % Plt Count 184 (150-400) K/uL Neut % (Auto) 72 H (36-66) % Lymph % (Auto) 16 L (24-44) % [place] % (Auto) 10 H (2-6) % Eos % (Auto) 2 (2-4) % Baso % (Auto) 0 (0-1) % Sodium (140-148) mmol/L Potassium (3.6-5.2) mmol/L Chloride (100-108) mmol/L Carbon Dioxide (21-32) mmol/L Anion Gap (5.0-14.0) mmol/L BUN (7-18) mg/dL Creatinine (0.8-1.3) mg/dL Est Cr Clr Drug Dosing mL/min Estimated GFR (MDRD) (>60) Glucose (74-106) mg/dL Lactic Acid 1.8 (0.4-2.0) mmol/L Calcium (8.5-10.1) mg/dL Magnesium (1.8-2.4) mg/dL 08/07/18 Range/Units 05:47 WBC (4.5-11.0) K/uL RBC (4.30-5.90) M/uL Hgb (12.0-15.0) g/dL Hct (40.0-54.0) % MCV (80-98) fL MCH (27-31) pg MCHC (32-36) % Plt Count (150-400) K/uL Neut % (Auto) (36-66) % Lymph % (Auto) (24-44) % [place] % (Auto) (2-6) % Eos % (Auto) (2-4) % Baso % (Auto) (0-1) % Sodium 143 (140-148) mmol/L Potassium 4.5 (3.6-5.2) mmol/L Chloride 108 (100-108) mmol/L Carbon Dioxide 25 (21-32) mmol/L Anion Gap 9.9 (5.0-14.0) mmol/L BUN 28 H (7-18) mg/dL Creatinine 1.8 H (0.8-1.3) mg/dL Est Cr Clr Drug Dosing 31.52 mL/min Estimated GFR (MDRD) 37 L (>60) Glucose 94 (74-106) mg/dL Lactic Acid (0.4-2.0) mmol/L Calcium 8.5 (8.5-10.1) mg/dL Magnesium 2.0 (1.8-2.4) mg/dL Med Orders - Current: Current Medications Amlodipine Besylate (Norvasc) 10 mg PO DAILY [facility] Last Admin: 08/06/18 10:13 Dose: Not Given Aspirin (Aspirin) 81 mg PO DAILY [facility] Last Admin: 08/06/18 10:13 Dose: Not Given Chlorthalidone (Chlorthalidone) 25 mg PO DAILY [facility] Last Admin: 08/06/18 10:13 Dose: Not Given Clopidogrel Bisulfate (Plavix) 75 mg PO DAILY [facility] Last Admin: 08/06/18 10:13 Dose: Not Given Cyclobenzaprine HCl (Flexeril) 10 mg PO BEDTIME [facility] Last Admin: 08/06/18 21:00 Dose: 10 mg Docusate Sodium (Colace) 100 mg PO BID PRN PRN Reason: Constipation Famotidine (Pepcid) 20 mg PO DAILY [facility] Last Admin: 08/06/18 10:13 Dose: Not Given Hydromorphone HCl (Dilaudid) 1 mg IVPUSH Q2H PRN PRN Reason: Pain (severe 7-10) Last Admin: 08/06/18 12:35 Dose: 1 mg Sodium Chloride (Normal Saline) 1,000 mls @ 75 mls/hr IV ASDIRECTED [facility] Last Admin: 08/07/18 01:12 Dose: 75 mls/hr Lisinopril (Prinivil) 20 mg PO DAILY [facility] Last Admin: 08/06/18 10:13 Dose: Not Given Lorazepam (Ativan) 0.5 mg IVPUSH Q4H PRN PRN Reason: Muscle Spasm Last Admin: 08/06/18 14:30 Dose: 0.5 mg Ondansetron HCl (Zofran Odt) 4 mg PO Q6H PRN PRN Reason: Nausea able to take PO Last Admin: 08/06/18 04:06 Dose: 4 mg Ondansetron HCl (Zofran) 4 mg IVPUSH Q4H PRN PRN Reason: Nausea/Vomiting Last Admin: 08/06/18 08:33 Dose: 4 mg Oxycodone HCl (Oxycodone) 10 mg PO Q4H PRN PRN Reason: Pain (moderate 4-6) Last Admin: 08/07/18 04:18 Dose: 10 mg Pantoprazole Sodium (Protonix Iv) 40 mg IVPUSH Q12H [facility] Last Admin: 08/06/18 22:56 Dose: 40 mg Rosuvastatin Calcium (Crestor) 20 mg PO DAILY [facility] Last Admin: 08/06/18 10:13 Dose: Not Given Tamsulosin HCl (Flomax) 0.4 mg PO DAILY [facility] Discontinued Medications Ceftriaxone Sodium (Rocephin) Confirm Administered Dose 1 gm .ROUTE .STK-MED ONE Stop: 08/06/18 04:51 Last Admin: 08/06/18 05:19 Dose: Not Given Fentanyl (Sublimaze) 50 mcg IVPUSH ONETIME ONE Stop: 08/05/18 15:24 Last Admin: 08/05/18 15:27 Dose: 50 mcg Fentanyl (Sublimaze) 50 mcg IVPUSH ONETIME ONE Stop: 08/05/18 16:34 Last Admin: 08/05/18 16:37 Dose: 50 mcg Hydromorphone HCl (Dilaudid) 1 mg IVPUSH ONETIME ONE Stop: 08/05/18 19:31 Last Admin: 08/05/18 20:15 Dose: 1 mg Lactated Ringer's (Ringers, Lactated) 1,000 mls @ 125 mls/hr IV ASDIRECTED [facility] Last Admin: 08/05/18 22:41 Dose: 125 mls/hr Ceftriaxone Sodium 1 gm/ (Sodium Chloride) 50 mls @ 100 mls/hr IV ONETIME ONE Stop: 08/06/18 04:56 Last Admin: 08/06/18 05:19 Dose: 100 mls/hr Sodium Chloride (Normal Saline) 1,000 mls @ 125 mls/hr IV ASDIRECTED [facility] Last Admin: 08/06/18 05:19 Dose: 125 mls/hr Sodium Chloride (Normal Saline) Confirm Administered Dose 50 mls @ as directed .ROUTE .STK-MED ONE Stop: 08/06/18 04:51 Last Admin: 08/06/18 05:19 Dose: Not Given Sodium Chloride (Normal Saline) 1,000 mls @ 75 mls/hr IV ASDIRECTED [facility] Lidocaine (Lidoderm 5%) 700 mg TOP ONETIME ONE Stop: 08/06/18 04:01 Last Admin: 08/06/18 04:57 Dose: 700 mg Lidocaine (Lidoderm 5%) Confirm Administered Dose 700 mg .ROUTE .STK-MED ONE Stop: 08/06/18 04:55 Last Admin: 08/06/18 05:20 Dose: Not Given Lorazepam (Ativan) 1 mg IVPUSH ONETIME ONE Stop: 08/05/18 18:27 Last Admin: 08/05/18 18:35 Dose: 1 mg Lorazepam (Ativan) 1 mg IV Q4H PRN PRN Reason: Muscle Spasm Last Admin: 08/05/18 22:37 Dose: 1 mg Miscellaneous Information (Remove Patch) 1 ea TRDERM ONETIME [facility] Stop: 08/06/18 18:00 Naloxone HCl (Narcan) Confirm Administered Dose 0.4 mg .ROUTE .STK-MED ONE Stop: 08/06/18 04:01 Last Admin: 08/06/18 05:19 Dose: Not Given Ondansetron HCl (Zofran) 4 mg IVPUSH ONETIME ONE Stop: 08/05/18 17:48 Last Admin: 08/05/18 17:53 Dose: 4 mg - Exam Quality Assessment: Urine Catheter, DVT Prophylaxis General: Alert, Oriented, Cooperative, Moderate Distress Lungs: Clear to Auscultation, Normal Respiratory Effort Cardiovascular: Regular Rate, Regular Rhythm, No Murmurs GI/Abdominal Exam: Soft, Non-Tender, No Organomegaly, No Distention Back Exam: Other (Tenderness to palpation right flank) - Problem List Review Problem List Initiated/Reviewed/Updated: Yes - My Orders Last 24 Hours: My Active Orders 08/06/18 10:44 Consult to Physician [CONS] Routine 08/06/18 10:45 Notify Provider Consults [RC] ASDIRECTED 08/06/18 10:47 Convert IV to Saline Lock [OM.PC] Routine 08/06/18 10:58 LORazepam [Ativan] 0.5 mg IVPUSH Q4H PRN 08/06/18 11:00 Pantoprazole [ProTONIX IV] 40 mg IVPUSH Q12H 08/06/18 13:15 Sodium Chloride 0.9% [Normal Saline] 1,000 ml IV ASDIRECTED 08/07/18 10:00 Tamsulosin [Flomax] 0.4 mg PO DAILY 08/07/18 Breakfast NPO After Midnight [Nothing per Oral After Midnight Diet] [DIET] - Plan Plan:: ASSESSMENT / PLAN Right flank pain-likely secondary to soft tissue injury with associated muscle strain and muscle spasm. Pain has improved over the past 24 hours, white blood cell count has normalized. -Saline lock IV after EGD today -Continuous pulse oximetry -Pain medication as needed -IV Ativan 0.5 mg every 4 hours as needed for muscle spasm -Flexeril 10 mg at HS Hematemesis-hemoglobin has decreased only marginally over the last 24 hours -Follow-up hemoglobin later this afternoon and again in a.m. -Protonix 40 mg IV every 12 hours -Nothing by mouth after midnight -Consult Dr. Chin for EGD today Urinary retention-likely secondary to BPH -Flomax 0.5 mg by mouth daily -Attempt to remove Turcios catheter in a.m. CAD -ordered home medications Maintenance issues -Orders home meds:ordered -Nutrition: Regular diet -Turcios catheter not indicated at this time -DVT:ambulate -GI Prophalaxis; Protonix 40mg daily -referral Spiritual care. CODE STATUS: Full Admission status: Admit to Observation -I expect this patient to stay less than 24 hours, not to exceed 96 hours for evaluation and management of this problem. Disposition: home Primary care provider: Hospitalist: Dr. Gold
[2018-08-07] MEDS: Pantoprazole 40 MG Vial IVPUSH SCH ×2 (11:04→22:11)
[2018-08-07] MEDS: HYDROmorphone 1 MG/ML Syringe IVPUSH PRN (11:04)
[2018-08-07] MEDS ORDERED: Propofol 200 MG/20 ML SDV ONE (12:22)
[2018-08-07] MEDS ORDERED: fentaNYL 100 MCG/2 ML SDV ONE (12:22)
[2018-08-07] MEDS: Ampicillin 2 GM in Sodium Chloride 0.9% 100 ML IV ONE ×2 (12:57→15:24)
[2018-08-07] MEDS: Rosuvastatin 10 MG Tab PO SCH (14:02)
[2018-08-07] MEDS: amLODIPine 10 MG Tab PO SCH (14:02)
[2018-08-07] MEDS: Aspirin 81 MG Tab.Chew PO SCH (14:02)
[2018-08-07] MEDS: Famotidine 20 MG Tab PO SCH (14:03)
[2018-08-07] MEDS: Clopidogrel 75 MG Tab PO SCH (14:03)
[2018-08-07] MEDS: Lisinopril 20 MG Tab PO SCH (14:03)
[2018-08-07] MEDS: Chlorthalidone 25 MG Tab PO SCH (14:03)
[2018-08-07] MEDS: Tamsulosin 0.4 MG Cap.ER PO SCH (14:03)
[2018-08-07] MEDS: Docusate Sodium 100 MG Cap PO PRN (18:03)
[2018-08-07] MEDS: Cyclobenzaprine 10 MG Tab PO SCH (22:12)
[2018-08-08] MEDS: oxyCODONE 5 MG Tab PO PRN ×3 (00:19→16:00)
[2018-08-08] MEDS: Aspirin 81 MG Tab.Chew PO SCH (08:06)
[2018-08-08] MEDS: Tamsulosin 0.4 MG Cap.ER PO SCH (08:07)
[2018-08-08] MEDS: amLODIPine 10 MG Tab PO SCH (08:07)
[2018-08-08] MEDS: Rosuvastatin 10 MG Tab PO SCH (08:07)
[2018-08-08] MEDS: Chlorthalidone 25 MG Tab PO SCH (08:07)
[2018-08-08] MEDS: Famotidine 20 MG Tab PO SCH (08:08)
[2018-08-08] MEDS: Docusate Sodium 100 MG Cap PO PRN (08:09)
[2018-08-08] MEDS: Clopidogrel 75 MG Tab PO SCH (08:09)
[2018-08-08] MEDS: Lisinopril 20 MG Tab PO SCH (08:09)
--- NOTE | 2018-08-08 08:11 | OR ---
DATE OF PROCEDURE: 08/07/2018 PREOPERATIVE DIAGNOSES: 1. Right-sided abdominal pain. 2. Hematemesis. POSTOPERATIVE DIAGNOSES: 1. Right-sided abdominal pain. 2. Hematemesis. 3. Pre-pyloric ulcers. 4. Duodenitis. PROCEDURES: Esophagogastroduodenoscopy with antral biopsies for CLOtest and for pathology to look for Helicobacter pylori, also included in this was biopsy of the prominent ulcerated lesion. SURGEON: Jigar Chin MD ANESTHESIA: IV anesthesia with monitored anesthesia care. INDICATION: This 73-year-old white male is referred for upper endoscopy. He fell a few days ago on his right side and has had severe right-sided pain. CAT scan of his abdomen and pelvis was unrevealing. He did vomit some dark material, which was heme- positive. A request was made for upper endoscopy. I counseled him for this, including risks and alternatives, and he gave his informed consent to proceed. DESCRIPTION OF PROCEDURE: The patient was placed in the left lateral decubitus position. IV anesthesia was administered by the Anesthesia Service. Time-out was held. The flexible video Olympus upper endoscope was passed through his mouth, down his esophagus, and into his stomach. The scope was easily passed through the pylorus and into the duodenum reaching its third portion. At no point did we see any new or old blood in the upper gastrointestinal tract. The scope was then slowly withdrawn, examining the mucosa throughout. The distal duodenum appeared unremarkable. The scope was brought up into the duodenal bulb. There was obvious inflammation here. The scope was then brought back up through the pylorus into the antrum. There were a couple of areas that appeared to be pre-pyloric ulcers. They had prominent tissue associated with one of them. There was also a little inflammation adjacent to the pylorus. We obtained biopsies for pathology to look for Helicobacter pylori and for CLOtest. The scope was retroflexed. The proximal stomach appeared unremarkable. The scope was straightened and brought up through the otherwise unremarkable-appearing stomach. The GE junction appeared unremarkable. The scope was then brought up through the unremarkable- appearing esophagus and was removed. Jigar Chin MD [facility]ENTERFranci
[2018-08-08] MEDS ORDERED: Magnesium Hydroxide 400 MG/5 ML Susp 30 ML Cup PO ONE (10:54)
[2018-08-08 11:02] VITALS: BP 157/63
[2018-08-08] MEDS: Pantoprazole 40 MG Vial IVPUSH SCH (11:08)
--- NOTE | 2018-08-08 12:12 | PCM.DCSUM1 ---
Discharge Summary - Hospital Course Brief History: Mr. Grissom is a 73-year-old gentleman who was admitted through the emergency department for further evaluation and management of severe pain in his right lower lateral back. - Discharge Data Discharge Date: 08/08/18 Discharge Disposition: Home, Self-Care 01 Condition: Fair - Discharge Diagnosis/Problem(s) (1) Acute upper GI bleed SNOMED Code(s): 84671190 ICD Code: K92.2 - GASTROINTESTINAL HEMORRHAGE, UNSPECIFIED Status: Acute Current Visit: Yes (2) Gastritis SNOMED Code(s): 0619083 ICD Code: K29.70 - GASTRITIS, UNSPECIFIED, WITHOUT BLEEDING Status: Acute Current Visit: Yes (3) Right flank pain SNOMED Code(s): 142601818 ICD Code: R10.9 - UNSPECIFIED ABDOMINAL PAIN Status: Acute Priority: High Current Visit: Yes (4) Urinary retention due to benign prostatic hyperplasia SNOMED Code(s): 864997988 ICD Code: N40.1 - BENIGN PROSTATIC HYPERPLASIA WITH LOWER URINARY TRACT SYMP ; R33.8 - OTHER RETENTION OF URINE Status: Acute Current Visit: Yes - Patient Summary/Data Consults: Consultations 08/05/18 20:30 Consult to Spiritual Care [CONS] Routine 08/06/18 10:44 Consult to Physician [CONS] Routine Consulting Provider: Jigar Chin Call Completed to Consulting Physician: Yes Reason for Consult: EGD in a.m., hematemesis 08/08/18 11:40 Consult to Physical Therapy [PT Evaluation and Treatment] [CONS] Routine Please Evaluate and Treat. PT Reason for Consult: Strengthening This query below is only for informational purposes and is not editable. Admission Diagnosis/Problem: Flank pain Hospital Course: Mr. Grissom arrived via EMS with severe right sided flank pain after sneezing at home. He reports fell two days ago onto his right side, the area was sore but after sneezing developed unbearable pain. Labs, Abdomen-pelvis, chest xray do not have definite source for the pain. A large right renal cyst was noted and diverticula in bladder, referral was made to Nephrology in outpatient. He does not feel he can go home due to the severe pain. Plan to admit to hospital for pain control. On admission he was given IV fluids for hydration as well as pain medication and medication as needed for nausea. On further evaluation was felt that the pain was secondary to muscle strain injury in the right lower lateral back severe pain was secondary to intermittent episodes of muscle spasm. He did have some ongoing nausea vomiting and on the morning after admission did have an emesis with apparent blood in it. Seriel hemoglobin levels were obtained and dropped only mildly he did have one further episode that appeared to contain some blood. He was seen and evaluated by Dr. Chin, EGD was performed which showed evidence of only mild gastritis. He was treated with IV Protonix and will be transitioned to oral Protonix at the time of discharge. He also developed urinary retention while hospitalized Turcios catheter was placed and he was started on oral Flomax. Catheter was removed prior to discharge and he was able to urinate without difficulty. He was seen daily by physical therapy because of his muscle strain and back pain with muscle spasms, pain had improved significantly by the time of discharge but not totally resolved. He was offered further physical therapy either scheduled as an outpatient or through home care which he refused. Follow-up appointment will be scheduled with his primary care provider within one week. - Patient Instructions Diet: Usual Diet as Tolerated Activity: No Lifting Over 10 Pounds, No Strenuous Activities Other/Special Instructions: Please schedule follow-up appointment with primary care provider within one week. - Discharge Plan *PRESCRIPTION DRUG MONITORING PROGRAM REVIEWED*: Not Applicable *COPY OF PRESCRIPTION DRUG MONITORING REPORT IN PATIENT CHRIS: Not Applicable Prescriptions/Med Rec: oxyCODONE 5 mg PO Q4H PRN #12 tablet PRN Reason: Pain (Moderate 4-6) Pantoprazole Sodium [Protonix] 40 mg PO DAILY #30 suspdr.pkt Tamsulosin [Flomax] 0.4 mg PO DAILY #30 cap.er Home Medications: Home Meds Aspirin 1 tab PO DAILY 04/28/16 [History] Clopidogrel [Plavix] 75 mg PO DAILY 04/28/16 [History] Chlorthalidone 25 mg PO DAILY 08/05/18 [History] Lisinopril 20 mg PO DAILY 08/05/18 [History] Rosuvastatin [Crestor] 20 mg PO DAILY 08/05/18 [History] amLODIPine [Norvasc] 10 mg PO DAILY 08/05/18 [History] Pantoprazole Sodium [Protonix] 40 mg PO DAILY #30 suspdr.pkt 08/08/18 [Rx] Tamsulosin [Flomax] 0.4 mg PO DAILY #30 cap.er 08/08/18 [Rx] oxyCODONE 5 mg PO Q4H PRN #12 tablet 08/08/18 [Rx] Referrals: Mahin Arteaga MD [Ordering Only Provider] - 08/14/18 2:00 pm (Please arrive 15 minutes early to register for your appointment.) - Discharge Summary/Plan Comment DC Time >30 min.: No - Patient Data Vitals - Most Recent: Last Vital Signs Temp 96.5 F 08/08/18 11:00 Pulse 68 08/08/18 11:00 Resp 18 08/08/18 11:00 BP 157/63 H 08/08/18 11:00 Pulse Ox 91 L 08/08/18 11:54 Weight - Most Recent: 172 lb 15.983 oz I&O - Last 24 hours: Intake & Output 08/07/18 08/08/18 08/08/18 22:59 06:59 14:59 Intake Total 4782 621 6692 Output Total 1225 300 Balance 57 120 1050 Med Orders - Current: Current Medications Amlodipine Besylate (Norvasc) 10 mg PO DAILY [facility] Last Admin: 08/08/18 08:07 Dose: 10 mg Aspirin (Aspirin) 81 mg PO DAILY [facility] Last Admin: 08/08/18 08:06 Dose: 81 mg Chlorthalidone (Chlorthalidone) 25 mg PO DAILY [facility] Last Admin: 08/08/18 08:07 Dose: 25 mg Clopidogrel Bisulfate (Plavix) 75 mg PO DAILY [facility] Last Admin: 08/08/18 08:09 Dose: 75 mg Cyclobenzaprine HCl (Flexeril) 10 mg PO BEDTIME [facility] Last Admin: 08/07/18 22:12 Dose: 10 mg Docusate Sodium (Colace) 100 mg PO BID PRN PRN Reason: Constipation Last Admin: 08/08/18 08:09 Dose: 100 mg Famotidine (Pepcid) 20 mg PO DAILY [facility] Last Admin: 08/08/18 08:08 Dose: 20 mg Hydromorphone HCl (Dilaudid) 1 mg IVPUSH Q2H PRN PRN Reason: Pain (severe 7-10) Last Admin: 08/07/18 11:04 Dose: 1 mg Lisinopril (Prinivil) 20 mg PO DAILY [facility] Last Admin: 08/08/18 08:09 Dose: 20 mg Lorazepam (Ativan) 0.5 mg IVPUSH Q4H PRN PRN Reason: Muscle Spasm Last Admin: 08/06/18 14:30 Dose: 0.5 mg Ondansetron HCl (Zofran Odt) 4 mg PO Q6H PRN PRN Reason: Nausea able to take PO Last Admin: 08/06/18 04:06 Dose: 4 mg Ondansetron HCl (Zofran) 4 mg IVPUSH Q4H PRN PRN Reason: Nausea/Vomiting Last Admin: 08/06/18 08:33 Dose: 4 mg Oxycodone HCl (Oxycodone) 10 mg PO Q4H PRN PRN Reason: Pain (moderate 4-6) Last Admin: 08/08/18 08:09 Dose: 10 mg Pantoprazole Sodium (Protonix Iv) 40 mg IVPUSH Q12H [facility] Last Admin: 08/08/18 11:08 Dose: 40 mg Rosuvastatin Calcium (Crestor) 20 mg PO DAILY [facility] Last Admin: 08/08/18 08:07 Dose: 20 mg Tamsulosin HCl (Flomax) 0.4 mg PO DAILY [facility] Last Admin: 08/08/18 08:07 Dose: 0.4 mg Discontinued Medications Ceftriaxone Sodium (Rocephin) Confirm Administered Dose 1 gm .ROUTE .STK-MED ONE Stop: 08/06/18 04:51 Last Admin: 08/06/18 05:19 Dose: Not Given Fentanyl (Sublimaze) 50 mcg IVPUSH ONETIME ONE Stop: 08/05/18 15:24 Last Admin: 08/05/18 15:27 Dose: 50 mcg Fentanyl (Sublimaze) 50 mcg IVPUSH ONETIME ONE Stop: 08/05/18 16:34 Last Admin: 08/05/18 16:37 Dose: 50 mcg Fentanyl (Sublimaze) Confirm Administered Dose 100 mcg .ROUTE .STK-MED ONE Stop: 08/07/18 12:23 Hydromorphone HCl (Dilaudid) 1 mg IVPUSH ONETIME ONE Stop: 08/05/18 19:31 Last Admin: 08/05/18 20:15 Dose: 1 mg Lactated Ringer's (Ringers, Lactated) 1,000 mls @ 125 mls/hr IV ASDIRECTED [facility] Last Admin: 08/05/18 22:41 Dose: 125 mls/hr Ceftriaxone Sodium 1 gm/ (Sodium Chloride) 50 mls @ 100 mls/hr IV ONETIME ONE Stop: 08/06/18 04:56 Last Admin: 08/06/18 05:19 Dose: 100 mls/hr Sodium Chloride (Normal Saline) 1,000 mls @ 125 mls/hr IV ASDIRECTED [facility] Last Admin: 08/06/18 05:19 Dose: 125 mls/hr Sodium Chloride (Normal Saline) Confirm Administered Dose 50 mls @ as directed .ROUTE .STK-MED ONE Stop: 08/06/18 04:51 Last Admin: 08/06/18 05:19 Dose: Not Given Sodium Chloride (Normal Saline) 1,000 mls @ 75 mls/hr IV ASDIRECTED [facility] Sodium Chloride (Normal Saline) 1,000 mls @ 75 mls/hr IV ASDIRECTED [facility] Last Admin: 08/07/18 13:24 Dose: 75 mls/hr Ampicillin Sodium 2 gm/ Sodium (Chloride) 100 mls @ 200 mls/hr IV ONETIME ONE Stop: 08/07/18 13:14 Last Admin: 08/07/18 15:24 Dose: Not Given Lidocaine (Lidoderm 5%) 700 mg TOP ONETIME ONE Stop: 08/06/18 04:01 Last Admin: 08/06/18 04:57 Dose: 700 mg Lidocaine (Lidoderm 5%) Confirm Administered Dose 700 mg .ROUTE .STK-MED ONE Stop: 08/06/18 04:55 Last Admin: 08/06/18 05:20 Dose: Not Given Lorazepam (Ativan) 1 mg IVPUSH ONETIME ONE Stop: 08/05/18 18:27 Last Admin: 08/05/18 18:35 Dose: 1 mg Lorazepam (Ativan) 1 mg IV Q4H PRN PRN Reason: Muscle Spasm Last Admin: 08/05/18 22:37 Dose: 1 mg Magnesium Hydroxide (Milk Of Magnesia) 30 ml PO ONETIME ONE Stop: 08/08/18 10:55 Last Admin: 08/08/18 11:07 Dose: 30 ml Miscellaneous Information (Remove Patch) 1 ea TRDERM ONETIME [facility] Stop: 08/06/18 18:00 Naloxone HCl (Narcan) Confirm Administered Dose 0.4 mg .ROUTE .STK-MED ONE Stop: 08/06/18 04:01 Last Admin: 08/06/18 05:19 Dose: Not Given Ondansetron HCl (Zofran) 4 mg IVPUSH ONETIME ONE Stop: 08/05/18 17:48 Last Admin: 08/05/18 17:53 Dose: 4 mg Propofol (Diprivan 20 Ml) Confirm Administered Dose 200 mg .ROUTE .STK-MED ONE Stop: 08/07/18 12:23 - Exam General: Reports: Alert, Oriented, Cooperative, Mild Distress Lungs: Reports: Clear to Auscultation, Normal Respiratory Effort Cardiovascular: Reports: Regular Rate, Regular Rhythm, No Murmurs GI/Abdominal Exam: Soft, Non-Tender, No Organomegaly, No Distention Back Exam: Reports: Normal Inspection, Other (Tenderness to palpation in the musculature of the right lower lateral back) Extremities: Non-Tender, No Pedal Edema
== END 2018-08-08 17:35 | disposition home or self-care (01) | DRG 947 ==
LOC: JP.ED 14:06 → JP.MS 19:32
PROVIDERS: ADMIT Hospitalist; ATTEND Hospitalist
PROC: 0DB68ZX Excision of Stomach, Via Natural or Artificial Opening Endoscopic, Diagnostic (ICD-10-PCS; principal; 2018-08-07)
DX: R10.9 Unspecified abdominal pain (principal); G89.11 Acute pain due to trauma; K25.4 Chronic or unspecified gastric ulcer with hemorrhage; Z95.820 Peripheral vascular angioplasty status with implants and grafts; K29.81 Duodenitis with bleeding; Q60.0 Renal agenesis, unilateral; S39.012A Strain of muscle, fascia and tendon of lower back, initial encounter; W19.XXXA Unspecified fall, initial encounter; M62.830 Muscle spasm of back; N40.1 Benign prostatic hyperplasia with lower urinary tract symptoms; R33.8 Other retention of urine; E78.00 Pure hypercholesterolemia, unspecified; I25.10 Atherosclerotic heart disease of native coronary artery without angina pectoris; Z87.891 Personal history of nicotine dependence; Z95.5 Presence of coronary angioplasty implant and graft; Z79.02 Long term (current) use of antithrombotics/antiplatelets; Z79.82 Long term (current) use of aspirin; Z79.899 Other long term (current) drug therapy
CPT/HCPCS: 36415; 71046; 74176; 80053; 83605; 84484; 85025; 96374; 96375; 99284; 99285; J2060; J2405; J3010 ×2; J7120; 51702; 80048; 81001; 83735; 85018; 86140; 87081; 88305; 94762; 97110-GP; 97140-GP; 97161-GP; 97530-GP; A9270-GY; C9113; J0290; J0696; J1170; J2704; J7030; J7050